=== PATIENT | female | born 2000 | race Caucasian/White ===

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

== ENCOUNTER 2021-05-16 15:01 | Emergency (ER) | payer OTHER ==
[~2021-05-16] VITALS: Ht 162.6 cm; Wt 160.0 kg
[~2021-05-16 15:01] MED LIST changes: +MELO7.5T29 PO
[2021-05-16] MEDS ORDERED: CLIN-95 PO ×2 (16:30→16:55)
--- NOTE | 2021-05-16 16:30 | PHYS DOC ---
Past History Past Medical History: Other Additional Past Medical Histor: attention a deficit disorder (MARGARITO VANG APRN) Past Surgical History: No Surgical History (MARGARITO VANG APRN) Smoking: Non-smoker Alcohol Use: None Drug Use: None (MARGARITO VANG APRN) General Adult EDM: Chief Complaint: MULTIPLE COMPLAINTS HPI: HPI: Patient is a 20-year-old female that presents today with left eye swelling and right great toe pain. Patient states the left eye swelling started approximately 2 days ago, she does not recall any trauma, patient does wear eyeglasses but she is unsure of when her last eye appointment was. Patient states she has had some drainage from the eye as well and that she has been using a washcloth to clean that off. Patient states she does not wear contacts. Patient states that 6 months ago she started experiencing right great toe pain and she continues to have problems with this. She said this area is painful to touch. Patient denies chest pain, shortness of air, fever, or nausea and vomiting. (MARGARITO VANG APRN) Review of Systems: Review of Systems: Constitutional: Denies fever or chills Eyes: Left eye swelling HENT: Denies nasal congestion or sore throat Respiratory: Denies cough or shortness of breath Cardiovascular: Denies chest pain or edema GI: Denies abdominal pain, nausea, vomiting, bloody stools or diarrhea : Denies dysuria Musculoskeletal: Right great toe pain Integument: Denies rash Neurologic: Denies headache, focal weakness or sensory changes Endocrine: Denies polyuria or polydipsia Lymphatic: Denies swollen glands Psychiatric: Denies depression or anxiety (MARGARITO VANG APRN) Allergies: Allergies: Allergies Coded Allergies Type Severity Reaction Last Updated Verified No Known Drug Allergies 02/27/16 No (MARGARITO VANG APRN) Physical Exam: PE: Constitutional: Well developed, well nourished, no acute distress, non-toxic appearance. [] HENT: Normocephalic, atraumatic, bilateral external ears normal, oropharynx moist, no oral exudates, nose normal. [] Eyes: PERRLA, EOMI, left eye swelling noted on the eyelid area, yellowish-green drainage noted from the tear duct on the inner eye, conjunctive a is normal no redness or swelling noted, no ocular eye movement abnormalities noted. Patient does wear glasses. Neck: Normal range of motion, no tenderness, supple, no stridor. [] Cardiovascular:Heart rate regular rhythm, no murmur [] Lungs & Thorax: Bilateral breath sounds clear to auscultation [] Abdomen: Bowel sounds normal, soft, no tenderness, no masses, no pulsatile masses. [] Skin: Warm, dry, no erythema, no rash. [] Back: No tenderness, no CVA tenderness. [] Extremities: Right great toe ingrown toenail noted no drainage and no swelling or signs and symptoms of infection noted. Neurologic: Alert and oriented X 3, normal motor function, normal sensory f unction, no focal deficits noted. [] Psychologic: Affect normal, judgement normal, mood normal. [] (MARGARITO VANG APRN) Current Patient Data: Vital Signs: Vital Signs Date Time Temp Pulse Resp B/P (MAP) Pulse Ox O2 Delivery O2 Flow Rate FiO2 05/16/21 15:47 98.9 92 16 129/84 (99) Room Air 99.0 (MARGARITO VANG APRN) EKG: EKG: [] (MARGARITO VANG APRN) Radiology/Procedures: Radiology/Procedures: [] (MARGARITO VANG APRN) Heart Score: C/O Chest Pain: N/A Risk Factors: Risk Factors: DM, Current or recent (<one month) smoker, HTN, HLP, family history of CAD, obesity. Risk Scores: Score 0 - 3: 2.5% MACE over next 6 weeks - Discharge Home Score 4 - 6: 20.3% MACE over next 6 weeks - Admit for Clinical Observation Score 7 - 10: 72.7% MACE over next 6 weeks - Early Invasive Strategies (MARGARITO VANG APRN) Course & Med Decision Making: Course & Med Decision Making Pertinent Labs and Imaging studies reviewed. (See chart for details) Did discuss patient with Dr. Tony it is recommended that I place patient on oral antibiotic due to periorbital cellulitis of the left eyelid, and also will place patient on eye ointment for this for the next 5 days on the ointment and 10 days on antibiotics. Will refer patient to ophthalmology for further management of this. In regards to patient's toe nail issue will refer her to Dr. Augustin with podiatry for further management. (MARGARITO VANG APRN) Angela Disclaimer: Angela Disclaimer: This electronic medical record was generated, in whole or in part, using a voice recognition dictation system. (MARGARITO VANG APRN) Attending Co-Sign The patient was seen and interviewed as well as examined at the bedside. The chart was reviewed. The case was discussed. Agree with the plan of care. (VALERY TONY DO) Departure Departure: Impression: Primary Impression: Periorbital cellulitis of left eye Additional Impression: Ingrown nail Disposition: HOME / SELF CARE / HOMELESS Condition: STABLE Referrals: PB CHACON MD (PCP) [facility] Patient Instructions: Ingrown Toenail, Periorbital Cellulitis Additional Instructions: Clindamycin 300 mg take 1 tablet every 8 hours for the next 10 days Erythromycin ointment instill quarter inch ribbon to the left eye 4 times daily for 5 days Follow-up with Dr. Augustin with podiatry for further management of your ingrown toenail Follow-up with ophthalmology for further management of your periorbital cellulitis. Return to the emergency department if fever develops, you have decreased vision in your left eye, or your facial swelling gets worse. Scripts Clindamycin Hcl (CLINDAMYCIN HCL) 300 Mg Capsule 1 CAP PO TID for periorbital cellulitis, #30 CAP Prov: MARGARITO VANG APRN 05/16/21 MARGARITO VANG APRN May 16, 2021 16:30 VALERY TONY DO May 17, 2021 11:37
[2021-05-16] MEDS ORDERED: ERYTHROMYCIN 0.5% OPHTH OINTMENT 1GM TUBE. OS ONE (16:45)
[2021-05-16 17:25] VITALS: BP 129/84
== END 2021-05-16 17:49 | disposition home or self-care (01) ==
LOC: ER 15:01
DX: L03.213 Periorbital cellulitis (principal); L60.0 Ingrowing nail
CPT/HCPCS: 99283